=== PATIENT | male | born 1975 | race African-American/Black ===

== ENCOUNTER 2018-07-10 01:48 | Emergency (ER) | payer MEDICAID ==
[~2018-07-10] VITALS: Ht 177.8 cm; Wt 81.8 kg
[2018-07-10 01:50] VITALS: BP 126/84
== END 2018-07-10 04:00 | disposition left against medical advice (07) ==
LOC: ER 03:25
DX: R51 Headache (principal); Z53.21 Procedure and treatment not carried out due to patient leaving prior to being seen by health care provider; Y08.89XA Assault by other specified means, initial encounter; Y93.89 Activity, other specified; Y92.89 Other specified places as the place of occurrence of the external cause; Y99.8 Other external cause status